=== PATIENT | female | born 1960 | race Caucasian/White ===

== ENCOUNTER 2021-01-16 17:35 | Emergency (ER) | payer OTHER ==
--- NOTE | 2021-01-16 19:49 | RAD REPORT ---
EXAM DESCRIPTION: RAD - Shoulder Left 2 View - 01/16/2021 7:40 pm CLINICAL HISTORY: PAIN, fall COMPARISON: No comparisons TECHNIQUE: Internal and external rotation views of the left shoulder were obtained. FINDINGS: There is no fracture or dislocation. AC joint degenerative changes are present. Small infe riorly directed spurring seen. More prominent superior AC joint spurring and capsular thickening. The re are spurs present along the articular margin of the humerus with mild greater tuberosity degenerat fernanda change. Mild marginal spurring involves the glenoid. Acromial humeral joint space is normal. IMPRESSION: No fracture or dislocation seen. Moderately prominent shoulder joint degenerative change present as detailed.
--- NOTE | 2021-01-16 19:50 | RAD REPORT ---
EXAM DESCRIPTION: RAD - Wrist Left 3 View - 01/16/2021 7:40 pm CLINICAL HISTORY: PAIN, fall COMPARISON: No comparisons FINDINGS: No fracture is identified. There is no dislocation or periosteal reaction noted. Moderate degenerative change present at the trapezial first metacarpal articulation with more mild degenerativ e change at the scaphoid trapezium articulation. Radiocarpal joint space is narrowed. No suspicious s oft tissue finding. IMPRESSION: No left wrist fracture identified. Moderate severity degenerative changes involving the trapezium and first metacarpal articulation.
--- NOTE | 2021-01-16 19:52 | RAD REPORT ---
EXAM DESCRIPTION: RAD - Elbow Left 3 View - 01/16/2021 7:40 pm CLINICAL HISTORY: PAIN, fall COMPARISON: None. FINDINGS: Comminuted radial head fracture is present with multiple fracture fragments primarily arou nd the anterior margin. No distal humerus or proximal ulna fracture identified. No large hemarthrosis identified. No dislocation or periosteal reaction. No foreign body or other soft tissue abnormality. IMPRESSION: Comminuted left radial head fracture with numerous small fracture fragments seen along t he anterior joint line.
[2021-01-16] MEDS ORDERED: HYDROCODONE/APAP 10/325 TAB ONE (19:53)
--- NOTE | 2021-01-16 19:53 | RAD REPORT ---
EXAM DESCRIPTION: RAD - Knee Right 3 View - 01/16/2021 7:40 pm CLINICAL HISTORY: PAINfall, knee pain COMPARISON: No comparisons FINDINGS: No fracture, dislocation or periosteal reaction.Minimal joint effusion present. Medial com partment narrowing is present with moderate size marginal spurs. There is spurring along the tibial s pine. Patella femoral joint space narrowing seen with moderately prominent patella marginal spurs. Sp urring is seen at the quadriceps attachment to patella. No foreign body or other soft tissue abnormal ity. IMPRESSION: Prominent medial compartment and patellofemoral degenerative change. Clinical concerns for internal derangement or occult bony injury could be further assessed with MR im aging.
--- NOTE | 2021-01-16 20:38 | ER ---
Nurse's Notes [facility] Name: Aneudy Skaggs Age: 60 yrs Sex: Female : 1960 Arrival Date: 01/16/2021 Time: 17:37 Bed 19 Private MD: Diagnosis: Closed comminuted left radial head fracture;Contusion of right knee Presentation: 01/16 17:40 Chief complaint: Patient states: s/p fall after tripping on a carpet, landed on R knee sv and L elbow/wrist/shoulder today. Care prior to arrival: None. Mechanism of Injury: Fall from standing position. Trauma event details: Injury occurred in the [facility], Injury occurred: in a public building. Injury occurred: January 16, 2021. 17:40 Acuity: GAL[place] 4 sv 17:40 Method Of Arrival: Wheelchair sv 17:41 Coronavirus screen: Client denies travel out of the [place] in the last 14 days. At this sv time, the client does not indicate any symptoms associated with coronavirus-19. Ebola Screen: No symptoms or risks identified at this time. Risk Assessment: Do you want to hurt yourself or someone else? Patient reports no desire to harm self or others. Onset of symptoms was January 16, 2021. 17:43 Initial Sepsis Screen: Does the patient meet any 2 criteria? No. Patient's initial sv sepsis screen is negative. Does the patient have a suspected source of infection? No. Patient's initial sepsis screen is negative. Triage Assessment: 17:40 General: Appears in no apparent distress. uncomfortable, Behavior is calm, cooperative, sv appropriate for age. Neuro: Level of Consciousness is awake, alert, obeys commands, Oriented to person, place, time, situation. Respiratory: Respiratory effort is even, unlabored. Trauma Activation: Not Applicable Physician: ED Physician; Name: ; Notified At: ; Arrived At: Physician: General Surgeon; Name: ; Notified At: ; Arrived At: Physician: Radiology; Name: ; Notified At: ; Arrived At: Physician: Respiratory; Name: ; Notified At: ; Arrived At: Physician: Lab; Name: ; Notified At: ; Arrived At: Historical: - Allergies: 17:41 No Known Allergies; sv - PMHx: 17:41 Hypothyroidism; Hypertensive disorder; sv - Immunization history:: Client reports receiving the 2nd dose of the Covid vaccine, Client reports receiving the 1st dose of the Covid vaccine. - Social history:: Smoking status: Patient reports the use of cigarette tobacco products, smokes one-half pack cigarettes per day. Screenin:00 Abuse screen: Denies threats or abuse. Nutritional screening: No deficits noted. jb4 Tuberculosis screening: No symptoms or risk factors identified. Fall Risk None identified. Assessment: 18:30 Reassessment: Received VO from Dr Hahn for xrays. sv 19:00 General: Appears in no apparent distress. uncomfortable, Behavior is calm, cooperative. jb4 Pain: Complains of pain in left arm and right leg Pain does not radiate. Pain currently is 7 out of 10 on a pain scale. Neuro: Level of Consciousness is awake, alert, obeys commands, Oriented to person, place, time, situation. Cardiovascular: Patient's skin is warm and dry. Respiratory: Airway is patent Respiratory effort is even, unlabored, Respiratory pattern is regular, symmetrical. GI: No signs and/or symptoms were reported involving the gastrointestinal system. : No signs and/or symptoms were reported regarding the genitourinary system. EENT: No signs and/or symptoms were reported regarding the EENT system. Derm: Skin is intact, Skin is pink, warm \T\ dry. Musculoskeletal: Circulation, motion, and sensation intact. Range of motion: intact in all extremities. 20:00 Reassessment: Patient appears in no apparent distress at this time. Patient and/or jb4 family updated on plan of care and expected duration. Pain level reassessed. Patient is alert, oriented x 3, equal unlabored respirations, skin warm/dry/pink. 21:00 Reassessment: Patient appears in no apparent distress at this time. Patient and/or jb4 family updated on plan of care and expected duration. Pain level reassessed. Patient is alert, oriented x 3, equal unlabored respirations, skin warm/dry/pink. Vital Signs: 17:41 BP 128 / 70; Pulse 76; Resp 20; Temp 97.8; Pulse Ox 100% ; Weight 111.58 kg; Height 5 sv ft. 3 in. (160.02 cm); 17:41 Body Mass Index 43.58 (111.58 kg, 160.02 cm) sv ED Course: 17:37 Patient arrived in ED. ds1 17:41 Triage completed. sv 17:41 Arm band placed on. sv 19:16 [facility] pm1 19:16 Christo Aaron MD is Attending Physician. pm1 19:29 Gilberto Topete, RN is Primary Nurse. jb4 19:40 Knee Right 3 View XRAY In Process Unspecified. EDMS 19:40 Elbow Left 3 View XRAY In Process Unspecified. EDMS 19:40 Shoulder Left (2 View) XRAY In Process Unspecified. EDMS 19:40 Wrist Left (3 View) XRAY In Process Unspecified. EDMS 20:25 Orthoglass splint: posterior long arm splint applied to the left arm. dh4 20:26 Sling applied to left arm. dh4 20:37 Joseph Austin MD is Referral Physician. pm1 21:00 No provider procedures requiring assistance completed. Patient did not have IV access jb4 during this emergency room visit. Administered Medications: 19:37 Drug: [place] (HYDROcodone-acetaminophen) 10 mg-325 mg 1 tabs Route: PO; jb4 Outcome: 20:38 Discharge ordered by MD. pm1 21:00 Discharged to home via wheelchair, with family. jb4 21:00 Condition: stable 21:00 Discharge instructions given to patient, Instructed on discharge instructions, follow up and referral plans. medication usage, Demonstrated understanding of instructions, follow-up care, medications, Prescriptions given X 1. 21:36 Patient left the ED. mw2 Signatures: Dispatcher [employer] EDMS Emilie Kumari RN RN Rocio Key ds1 Emigdio Mackey NP CERTIFIED EMERGENCY VEHICLE TECHNICIAN pm1 Gilberto Topete, KIMBER RN jb4 Yasir Gonzalez mw2 Elio Tee [facility] Corrections: (The following items were deleted from the chart) 17:44 17:41 Resp 20bpm; Pulse Ox 100%; Temp 97.8F; 111.58 kg; Height 5 ft. 3 in.; BMI: 43.5; [facility]
--- NOTE | 2021-01-16 20:39 | EDPHYS ---
Physician Documentation [facility] Name: Aneudy Skaggs Age: 60 yrs Sex: Female : 1960 Arrival Date: 01/16/2021 Time: 17:37 Bed 19 Private MD: ED Physician Christo Aaron HPI: 01/16 19:29 This 60 yrs old Female presents to ER via Wheelchair with complaints of Fall pm1 Injury. 19:29 Details of fall: The patient fell from an upright position, while walking, and struck a pm1 carpeted surface. Onset: The symptoms/episode began/occurred today. Associated injuries: The patient sustained left elbow and right knee. The patient has not experienced similar symptoms in the past. The patient has not recently seen a physician. Patient tripped on carpet and landed on her right knee and left elbow. Patient was able to walk on both legs without any difficulty. Reports pain to right knee after resting for a few hours. Left elbow pain continuous. No head injury, headache, neck pain, LOC. Historical: - Allergies: 17:41 No Known Allergies; sv - PMHx: 17:41 Hypothyroidism; Hypertensive disorder; sv - Immunization history:: Client reports receiving the 2nd dose of the Covid vaccine, Client reports receiving the 1st dose of the Covid vaccine. - Social history:: Smoking status: Patient reports the use of cigarette tobacco products, smokes one-half pack cigarettes per day. ROS: 19:29 Constitutional: Negative for fever, chills, and weight loss, Neck: Negative for injury, pm1 pain, and swelling, Cardiovascular: Negative for chest pain, palpitations, and edema, Respiratory: Negative for shortness of breath, cough, wheezing, and pleuritic chest pain, Abdomen/GI: Negative for abdominal pain, nausea, vomiting, diarrhea, and constipation, Back: Negative for injury and pain. 19:29 Skin: Negative for injury, rash, and discoloration, Neuro: Negative for headache, weakness, numbness, tingling, and seizure. 19:29 MS/extremity: Positive for pain, of the left elbow and right knee. 19:29 All other systems are negative. Exam: 19:29 Constitutional: This is a well developed, well nourished patient who is awake, alert, pm1 and in no acute distress. Head/Face: Normocephalic, atraumatic. Neck: Trachea midline, no thyromegaly or masses palpated, and no cervical lymphadenopathy. Supple, full range of motion without nuchal rigidity, or vertebral point tenderness. No Meningismus. 19:29 Skin: Warm, dry with normal turgor. Normal color with no rashes, no lesions, and no evidence of cellulitis. 19:29 Cardiovascular: Exam negative for acute changes, Rate: normal, Rhythm: regular, Pulses: no pulse deficits are appreciated. 19:29 Respiratory: Exam negative for acute changes, respiratory distress, shortness of breath. 19:29 Musculoskeletal/extremity: Extremities: grossly normal except: noted in the right knee: tenderness, There is no evidence of decreased ROM, deformity, noted in the left elbow: tenderness, pain with supination . 19:29 Neuro: Exam negative for Orientation: is normal, Mentation: is normal, Motor: is normal, moves all fours. Vital Signs: 17:41 BP 128 / 70; Pulse 76; Resp 20; Temp 97.8; Pulse Ox 100% ; Weight 111.58 kg; Height 5 sv ft. 3 in. (160.02 cm); 17:41 Body Mass Index 43.58 (111.58 kg, 160.02 cm) sv Procedures: 20:49 Splinting: Splint applied to left elbow using Orthoglass splint, applied by tech. pm1 Examined by me, post splint application: neurovascular intact, 2+ distal pulses palpable, brisk capillary refill noted, Patient tolerated well. MDM: 19:18 Patient medically screened. pm1 20:34 Data reviewed: vital signs. Data interpreted: Pulse oximetry: on room air is 100 %. pm1 Interpretation: normal. Counseling: I had a detailed discussion with the patient and/or guardian regarding: the historical points, exam findings, and any diagnostic results supporting the discharge/admit diagnosis, radiology results, the need for outpatient follow up, for definitive care, a orthopedic surgeon, to return to the emergency department if symptoms worsen or persist or if there are any questions or concerns that arise at home. 20:40 ED course: [place] reviewed. pm1 01/16 18:30 Order name: Knee Right 3 View XRAY; Complete Time: 20:08 sv 01/16 18:30 Order name: Elbow Left 3 View XRAY; Complete Time: 20:08 sv 01/16 18:30 Order name: Shoulder Left (2 View) XRAY; Complete Time: 20:08 sv 01/16 18:30 Order name: Wrist Left (3 View) XRAY; Complete Time: 20:08 sv 01/16 19:34 Order name: Splint - Elbow; Complete Time: 20:37 pm1 01/16 19:34 Order name: Sling; Complete Time: 20:37 pm1 01/16 20:29 Order name: Shad wrap-joint; Complete Time: 20:42 pm1 Administered Medications: 19:37 Drug: [place] (HYDROcodone-acetaminophen) 10 mg-325 mg 1 tabs Route: PO; jb4 Disposition: 01/17 07:36 Co-signature as Attending Physician, Christo Aaron MD. mh7 Disposition Summary: 01/16/21 20:38 Discharge Ordered Location: Home pm1 Problem: new pm1 Symptoms: have improved pm1 Condition: Stable pm1 Diagnosis - Closed comminuted left radial head fracture pm1 - Contusion of right knee pm1 Followup: pm1 - With: Emergency Department - When: As needed - Reason: Worsening of condition Followup: pm1 - With: Joseph Austin MD - When: 2 - 3 days - Reason: Recheck today's complaints, Continuance of care, Re-evaluation by your physician Discharge Instructions: - Discharge Summary Sheet pm1 - Cast or Splint Care, Adult pm1 - How to Use a Sling pm1 Forms: - Medication Reconciliation Form pm1 - Thank You Letter pm1 - Antibiotic Education pm1 - Prescription Opioid Use pm1 Prescriptions: - Tramadol 50 mg Oral Tablet - take 1 tablet by ORAL route every 8 hours as needed; 12 tablet; Refills: 0, pm1 Product Selection Permitted Signatures: Dispatcher [employer] Emilie Brian RN RN Emigdio Rapp NP CONTENT ARCHITECT pm1 Gilberto Topete RN RN jb4 Christo Aaron MD MD mh7
[2021-01-16 21:51] VITALS: BP 128/70; TEMP 97.8; O2SAT 100
== END 2021-01-16 21:36 | disposition home or self-care (01) ==
LOC: ER 17:35
PROC: 2W39X1Z Immobilization of Left Upper Extremity using Splint (ICD-10-PCS; principal; 2021-01-16)
DX: S52.122A Displaced fracture of head of left radius, initial encounter for closed fracture (principal); S80.01XA Contusion of right knee, initial encounter; W18.09XA Striking against other object with subsequent fall, initial encounter; Y93.01 Activity, walking, marching and hiking; I10 Essential (primary) hypertension; F17.210 Nicotine dependence, cigarettes, uncomplicated
CPT/HCPCS: 99284